=== PATIENT | female | born 1955 | race Caucasian/White ===

== ENCOUNTER 2018-10-05 15:13 | Emergency (ER) | payer BC ==
[2018-10-05] MEDS ORDERED: NICOTINE 14 MG/24 HR PATCH.TD24 TD ONE ×2 (15:40→18:49)
--- NOTE | 2018-10-05 15:42 | ER Document Report ---
Addendum entered and electronically signed by ALPESH CALZADA LPCA 10/06/18 10:46: Discharge - Discharge Clinical Impression: Depression Qualifiers: Depression Type: other depression Qualified Code(s): F32.89 - Other specified depressive episodes Condition: Stable Disposition: HOME, SELF-CARE Additional Instructions: Depression Your evaluation reveals that you have mental depression. While symptoms may be vague, they often include disturbance of sleep, fatigue, loss of appetite, and general loss of interest in life. While depression may be a side effect of drugs, or a reaction to a major change in your life, many cases have no known cause. If depression is acute, and related to a major loss in your life, you can expect it to clear completely with time. If you have been depressed a long time, are prone to repeated bouts of depression or low mood, or have been thinking of suicide, get help. Depression can be treated with anti-depressant medication and counselling. Long-term depression will often take a few weeks to clear, even with appropriate medication. Follow-up care is important. Contact your physician, the hospital emergency center, crisis line, or your counsellor if you are losing control or having self-destructive thoughts. Counseling Services It has been recommended that you seek professional counseling to assist you with the stresses that you are experiencing. Most people at some time in their lives experience personal problems with which they need help. Pride and feeling that one can't be helped keep a lot of people from the benefits of counseling. These are telephone numbers to locate the counseling services most convenient to you: HOSPITAL COUNSELING SERVICE: COMMUNITY MENTAL HEALTH: VOLUNTEER SUPPORT: SUICIDE PREVENTION:You have been evaluated by both behavioral health and medical and deemed appropriate for discharge. Yo are highly encouraged to follow up with your outpatient provider [facility] for mental health medication management and therapeutic services. You have been provided prescriptions for Depakote 250 mg twice a daily and Buspar 10 mg twice daily. Cymbalta was de creased to 60 mg daily. Please take as directed. Referrals: [facility] [Outside] - Follow up as needed Original Note: ED Psych Disorder / Suicide - General Chief Complaint: Depression Stated Complaint: PSYCH PROBLEM Time Seen by Provider: 10/05/18 15:33 TRAVEL OUTSIDE OF THE [place] IN LAST 30 DAYS: No - HPI Notes: Patient is a 63-year-old female that presents to the emergency department for chief complaint of depression. Patient states over the last month she has had severe depression. She states that she has had one visit in a psychiatric facility. She is on medication for depression and denies any change in her dosing. She states her family hates her and referred her to the ER for further psychiatric care. She states that she needs help and does not want to feel like this anymore. She denies any homicidal ideation. She states she had previously thought about suicide but does not currently feel suicidal. Past Medical History: Hypothyroidism, insomnia, depression Past Surgical History: Reviewed in chart Social History: Daily tobacco. Denies drug and alcohol use Family History: Reviewed and noncontributory for presenting illness Allergies: Reviewed, see documented allergy list. REVIEW OF SYSTEMS: CONSTITUTIONAL : No fever No chills No diaphoresis No recent illness EENT: No vision changes No congestion No sore throat CARDIOVASCULAR: No chest pain No palpitations RESPIRATORY: No shortness of breath No cough No difficulty breathing GASTROINTESTINAL: No abdominal pain No nausea No vomiting No diarrhea GENITOURINARY: No dysuria No hematuria No difficulty urinating MUSCULOSKELETAL: No back pain No leg pain No arm pain SKIN: No rashes No lesions LYMPHATIC: No swollen, enlarged glands. NEUROLOGICAL: No lightheadedness No headache No weakness No paresthesias PSYCHIATRIC: No anxiety depression PHYSICAL EXAMINATION: Vital signs reviewed, nursing noted reviewed. GENERAL: Well-appearing, well-nourished and in no acute distress. HEAD: Atraumatic, normocephalic. EYES: Eyes appear normal, extraocular movements intact, sclera anicteric, conjunctiva are normal. ENT: nares patent, oropharynx clear without exudates. Moist mucous membranes. NECK: Normal range of motion, supple without lymphadenopathy LUNGS: Breath sounds clear to auscultation bilaterally and equal. No wheezes rales or rhonchi. HEART: Regular rate and rhythm without murmurs ABDOMEN: Soft, nontender, normoactive bowel sounds. No rebound, guarding, or rigidity. No masses appreciated. EXTREMITIES: Nontender, good range of motion, no pitting or edema. NEUROLOGICAL: No focal neurological deficits. Moves all extremities spontaneously Motor and sensory grossly intact on exam. PSYCH: Tearful, depressed, withdrawn SKIN: Warm, Dry, normal turgor, no rashes or lesions noted on exposed skin - Related Data Allergies/Adverse Reactions: celecoxib [From Celebrex] Allergy (Verified 10/05/18 15:20) Past Medical History - Social History Smoking Status: Current Every Day Smoker Family History: Reviewed & Not Pertinent Patient has suicidal ideation: No Patient has homicidal ideation: No - Past Medical History Cardiac Medical History: Reports: Hx Hypertension Renal/ Medical History: Denies: Hx Peritoneal Dialysis Psychiatric Medical History: Reports: Hx Depression Past Surgical History: Reports: Hx Hysterectomy, Hx Orthopedic Surgery, Hx Tonsillectomy Physical Exam - Vital signs Vitals: Temp Pulse Resp BP Pulse Ox 98.3 F 105 H 18 152/99 H 93 10/05/18 15:21 10/05/18 15:21 10/05/18 15:21 10/05/18 15:21 10/05/18 15:21 Course - Re-evaluation Re-evalutation: 10/05/18 15:41 Vitals reviewed. Nursing notes reviewed. Patient appears depressed and is very tearful during our conversation. She is requesting psych eval and states she feels like she needs to be hospitalized for further psychiatric care. She is not currently endorsing suicidal or homicidal ideation. 10/05/18 16:41 Patient's lab work is unremarkable. She is medically cleared for psychiatric evaluation. Laboratory 10/05/18 10/05/18 10/05/18 15:45 15:45 15:46 WBC 6.1 RBC 4.60 Hgb 14.9 Hct 42.6 MCV 93 MCH 32.4 MCHC 35.0 RDW 13.2 Plt Count 213 Seg Neutrophils % 49.2 Lymphocytes % 37.7 Monocytes % 10.8 Eosinophils % 1.9 Basophils % 0.4 Absolute Neutrophils 3.0 Absolute Lymphocytes 2.3 Absolute Monocytes 0.7 Absolute Eosinophils 0.1 Absolute Basophils 0.0 Sodium Potassium Chloride Carbon Dioxide Anion Gap BUN Creatinine Est GFR ( Amer) Est GFR (Non-Af Amer) Glucose Calcium Total Bilirubin Direct Bilirubin Neonat Total Bilirubin Neonat Direct Bilirubin Neonat Indirect Bili AST ALT Alkaline Phosphatase Total Protein Albumin Urine Color YELLOW Urine Appearance SLIGHTLY-CLOUDY Urine pH 7.0 Ur Specific [place] 1.015 Urine Protein NEGATIVE Urine Glucose (UA) NEGATIVE Urine Ketones NEGATIVE Urine Blood NEGATIVE Urine Nitrite NEGATIVE Urine Bilirubin NEGATIVE Urine Urobilinogen NEGATIVE Ur Leukocyte Esterase NEGATIVE Urine WBC (Auto) 1 Urine RBC (Auto) 0 U Hyaline Cast (Auto) 1 Squamous Epi Cells Auto 7 Urine Mucus (Auto) RARE Urine Ascorbic Acid NEGATIVE Salicylates Urine Opiates Screen NEGATIVE Urine Methadone Screen NEGATIVE Acetaminophen Ur Barbiturates Screen NEGATIVE Ur Phencyclidine Scrn NEGATIVE Ur Amphetamines Screen NEGATIVE U Benzodiazepines Scrn UNCONFIRMED POSITIVE Urine Cocaine Screen NEGATIVE U Marijuana (THC) Screen NEGATIVE Serum Alcohol 10/05/18 15:46 WBC RBC Hgb Hct MCV MCH MCHC RDW Plt Count Seg Neutrophils % Lymphocytes % Monocytes % Eosinophils % Basophils % Absolute Neutrophils Absolute Lymphocytes Absolute Monocytes Absolute Eosinophils Absolute Basophils Sodium 137.7 Potassium 4.3 Chloride 104 Carbon Dioxide 27 Anion Gap 7 BUN 11 Creatinine 0.76 Est GFR ( Amer) > 60 Est GFR (Non-Af Amer) > 60 Glucose 122 H Calcium 10.0 Total Bilirubin 0.5 Direct Bilirubin 0.3 Neonat Total Bilirubin Not Reportable Neonat Direct Bilirubin Not Reportable Neonat Indirect Bili Not Reportable AST 25 ALT 13 Alkaline Phosphatase 57 Total Protein 7.1 Albumin 4.2 Urine Color Urine Appearance Urine pH Ur Specific [place] Urine Protein Urine Glucose (UA) Urine Ketones Urine Blood Urine Nitrite Urine Bilirubin Urine Urobilinogen Ur Leukocyte Esterase Urine WBC (Auto) Urine RBC (Auto) U Hyaline Cast (Auto) Squamous Epi Cells Auto Urine Mucus (Auto) Urine Ascorbic Acid Salicylates < 1.0 L Urine Opiates Screen Urine Methadone Screen Acetaminophen < 10 L Ur Barbiturates Screen Ur Phencyclidine Scrn Ur Amphetamines Screen U Benzodiazepines Scrn Urine Cocaine Screen U Marijuana (THC) Screen Serum Alcohol < 10 - Vital Signs Vital signs: Temp Pulse Resp BP Pulse Ox 98.3 F 105 H 18 152/99 H 93 10/05/18 15:21 10/05/18 15:21 10/05/18 15:21 10/05/18 15:21 10/05/18 15:21 - Laboratory Result Diagrams: 10/05/18 15:46 10/05/18 15:46 Laboratory results interpreted by me: 10/05/18 15:46 Glucose 122 H Salicylates < 1.0 L Acetaminophen < 10 L - EKG Interpretation by Me Additional EKG results interpreted by me: 10/05/18 16:16 Interpreted by myself 10/11/2004: Normal sinus rhythm, rate 74, no ectopy, LVH, no ST elevation Discharge - Discharge Clinical Impression: Depression Qualifiers: Depression Type: other depression Qualified Code(s): F32.89 - Other specified depressive episodes Condition: Stable Disposition: PSYCH HOSP/UNIT
[2018-10-05 16:16] LABS: ABSOLUTE EOSINOPHILS # (AUTO) 0.1 10^3/uL (0.0-0.6); ABSOLUTE LYMPHOCYTES (AUTO) 2.3 10^3/uL (0.5-4.7); ABSOLUTE MONOCYTES (AUTO) 0.7 10^3/uL (0.1-1.4); BASOPHILS % (AUTO) 0.4 % (0-2); EOSINOPHILS % (AUTO) 1.9 % (0-6); HEMATOCRIT 42.6 % (36.0-47.0); HEMOGLOBIN 14.9 g/dL (12.0-15.5); LYMPHOCYTES % (AUTO) 37.7 % (13-45); MEAN CORPUSCULAR HEMOGLOBIN 32.4 pg (27.0-33.4); MEAN CORPUSCULAR VOLUME 93 fl (80-97); MONOCYTES % (AUTO) 10.8 % (3-13); PLATELET COUNT 213 10^3/uL (150-450); RED CELL DISTRIBUTION WIDTH 13.2 % (11.5-14.0); SEGMENTED NEUTROPHILS % (AUTO) 49.2 % (42-78); TOTAL CELLS COUNTED % (AUTO) 100 %; WHITE BLOOD COUNT 6.1 10^3/uL (4.0-10.5)
[2018-10-05 16:20] LABS: APPEARANCE,URINE SLIGHTLY-CLOUDY; BILIRUBIN,URINE NEGATIVE (NEGATIVE); COLOR,URINE YELLOW; GLUCOSE, URINE NEGATIVE (NEGATIVE); KETONES,URINE NEGATIVE (NEGATIVE); LEUKOCYTE ESTERASE,URINE NEGATIVE (NEGATIVE); NITRITE,URINE NEGATIVE (NEGATIVE); PROTEIN,URINE NEGATIVE (NEGATIVE); URINE SPECIFIC GRAVITY 1.015; UROBILINOGEN,URINE NEGATIVE mg/dL (<2.0)
--- NOTE | 2018-10-05 16:28 | EKG REPORT ---
SEVERITY:- ABNORMAL ECG - SINUS RHYTHM PROBABLE LEFT ATRIAL ABNORMALITY RIGHT AXIS DEVIATION CONSIDER LEFT VENTRICULAR HYPERTROPHY ANTERIOR Q WAVES, POSSIBLY DUE TO LVH : Confirmed by: Ayah Villafuerte MD 05-Oct-2018 16:28:22
[2018-10-05 16:29] LABS: ALANINE AMINOTRANSFERASE 13 U/L (9-52); ALBUMIN 4.2 g/dL (3.5-5.0); ALKALINE PHOSPHATASE 57 U/L (38-126); ANION GAP 7 (5-19); ASPARTATE AMINO TRANSFERASE 25 U/L (14-36); BILIRUBIN,DIRECT 0.3 mg/dL (0.0-0.4); BILIRUBIN,TOTAL 0.5 mg/dL (0.2-1.3); BLOOD UREA NITROGEN 11 mg/dL (7-20); CARBON DIOXIDE 27 mmol/L (22-30); CHLORIDE 104 mmol/L (98-107); GLUCOSE 122 mg/dL (75-110); POTASSIUM 4.3 mmol/L (3.6-5.0); SODIUM 137.7 mmol/L (137-145); TOTAL PROTEIN 7.1 g/dL (6.3-8.2)
[2018-10-05 16:31] LABS: URINE AMPHETAMINES SCREEN NEGATIVE; URINE BARBITURATES SCREEN NEGATIVE; URINE BENZODIAZEPINES SCREEN UNCONFIRMED POSITIVE; URINE COCAINE SCREEN NEGATIVE; URINE MARIJUANA (THC) SCREEN NEGATIVE; URINE METHADONE SCREEN NEGATIVE; URINE PHENCYCLIDINE SCREEN NEGATIVE
[2018-10-05 16:33] LABS: ACETAMINOPHEN < 10 ug/mL (10-30); ALCOHOL < 10 mg/dL (NONE DETECTED); SALICYLATE < 1.0 mg/dL (2.0-20.0)
[2018-10-05] MEDS: GABAPENTIN 300 MG CAPSULE PO SCH (18:40)
[2018-10-05] MEDS: DIVALPROEX SODIUM 250 MG TAB.SR.24H PO SCH (18:40)
[2018-10-05] MEDS: BUSPIRONE HCL 10 MG TABLET PO SCH (18:40)
[2018-10-05] MEDS: DULOXETINE HCL 30 MG CAPSULE.DR PO SCH (18:45)
[2018-10-06] MEDS ORDERED: LORAZEPAM 1 MG TABLET PO ONE (03:30)
[2018-10-06] MEDS: DULOXETINE HCL 30 MG CAPSULE.DR PO SCH (09:50)
[2018-10-06] MEDS: GABAPENTIN 300 MG CAPSULE PO SCH (09:50)
[2018-10-06] MEDS: BUSPIRONE HCL 10 MG TABLET PO SCH (09:50)
[2018-10-06] MEDS: DIVALPROEX SODIUM 250 MG TAB.SR.24H PO SCH (09:50)
--- NOTE | 2018-10-06 10:37 | ER Document Report ---
Doctor's Note Notes: 10/06/18 10:36 Patient seen and evaluated by myself. Patient is 63-year-old female who presents emergency department for the chief complaint of depression. Patient had depression over the last month. She has been prescribed medication for her depression and is currently taking it. She does not feel that the medication is helping any longer. Patient denies any suicidal or homicidal ideations. Patient has been medically cleared. Patient has had no issues overnight per nursing staff. Patient has no complaints in the room besides depression. Behavioral health was consulted. They would like the patient to be started on BuSpar 10 mg twice daily and Depakote 250 mg twice daily. The patient's Cymbalta will be decreased to 60 mg daily. The patient's trazodone and alprazolam will be discontinued. We will maintain the gabapentin at the same dosage.
[2018-10-06 12:36] VITALS: BP 126/70
== END 2018-10-06 12:36 | disposition home or self-care (01) ==
LOC: ER 15:13
DX: F32.9 Major depressive disorder, single episode, unspecified (principal); Z79.899 Other long term (current) drug therapy; I10 Essential (primary) hypertension; F17.200 Nicotine dependence, unspecified, uncomplicated; Z88.8 Allergy status to other drugs, medicaments and biological substances
CPT/HCPCS: 93005; 99284; 36415; 80307 ×4; 85025; 80053; 81001; 93010; J3490 ×2